=== PATIENT | male | born 2000 | race Caucasian/White ===

== ENCOUNTER → 2019-04-17 | Outpatient (CLI) | payer SELFPAY ==
--- NOTE | 2019-04-17 09:05 | PCVCIMAG ---
APPROVED REPORT Study performed: 04/17/2019 09:07:50 EXAM: Comprehensive 2D, Doppler, and color-flow Echocardiogram Patient Location: Echo lab Room #: 3Status: routine BSA: 2.04 HR: 58 bpmBP: 409/73 mmHg Rhythm: Bradycardia Other Information Study Quality: Good Indications Clinical Research 2D Dimensions IVSd: 8.92 (7-11mm)LVOT Diam: 2.30 (18-24mm) LVDd: 43.39 mm PWd: 8.84 (7-11mm)Ascending Ao: 24.98 (22-36mm) LVDs: 29.35 (25-40mm) Left Atrium: 34.58 (27-40mm) Aortic Root: 29.51 mm LV Single Plane 4CH: 52.63 % LV Single Plane 2CH: 53.97 % Biplane EF: 52.6 % Volumes Left Atrial Volume (Systole) Single Plane 4CH: 37.60 mLSingle Plane 2CH: 36.74 mL LA ESV Index: 19.00 mL/m2 Aortic Valve AoV Peak Raghavendra.: 0.98 m/s AO Peak Gr.: 3.85 mmHgLVOT Max P.60 mmHg LVOT Max V: 0.81 m/s LANG Vmax: 3.38 cm2 Mitral Valve E/A Ratio: 1.4 MV Decel. Time: 204.48 ms MV E Max Raghavendra.: 0.64 m/s MV A Raghavendra.: 0.46 m/s IVRT: 65.74 ms TDI E/Lateral E': 5.33E/Medial E': 7.11 Medial E' Raghavendra.: 0.09 m/s Lateral E' Raghavendra.: 0.12 m/s Pulmonary Valve PV Peak Raghavendra.: 0.93 m/sPV Peak Gr.: 3.44 mmHg MD End Vmax: 1.05 m/s Pulmonary Vein P Vein S: 0.42 m/sP Vein A: 0.32 m/s P Vein D: 0.61 m/sP Vein A Dur.: 103.8 msec P Vein S/D Ratio: 0.69 Tricuspid Valve RAP Estimate: 7.00 mmHg Left Ventricle The left ventricle is normal size. There is normal LV segmental wall motion. There is normal left ventricular wall thickness. Left ventricular systolic function is normal. The left ventricular ejection fraction is within the normal range. LVEF is 65%. The left ventricular diastolic function is normal. Right Ventricle The right ventricle is normal size. The right ventricular systolic function is normal. Atria The left atrium size is normal. The right atrium size is normal. Aortic Valve The aortic valve is normal in structure. No aortic regurgitation is present. There is no aortic valvular stenosis. Mitral Valve The mitral valve is normal in structure. Trace mitral regurgitation. No evidence of mitral valve stenosis. Tricuspid Valve The tricuspid valve is normal in structure. There is no tricuspid valve regurgitation noted. Pulmonic Valve The pulmonary valve is normal in structure. Trace pulmonic regurgitation. Great Vessels The aortic root is normal in size. IVC is normal in size and collapses >50% with inspiration. Pericardium There is no pericardial effusion. <Conclusion> 1. Normal echocardiogram with Doppler. Ejection fraction 65%. 2. No pericardial effusion
== END | disposition home or self-care (01) ==
LOC: PCVCIMAG 07:59
PROVIDERS: ATTEND Internal Medicine Nephrology
DX: Z00.6 Encounter for examination for normal comparison and control in clinical research program (principal); R00.1 Bradycardia, unspecified
CPT/HCPCS: 93306